=== PATIENT | female | born 1970 | race Caucasian/White ===

== ENCOUNTER 2024-09-07 11:30 | Outpatient (RCR) | payer MEDICARE, MEDICAID, SELFPAY ==
--- NOTE | 2024-07-11 13:45 | HP.PTEVAL_ITS ---
Patient's Visit Information Visit Information Visit Information: SOFIYA GARCIA is a 54 year old F referred to Physical Therapy by JOSE Guillaume with a diagnosis of Mixed Incontinence N39.46. Date of Evaluation: 07/11/24 Physical Therapist: Bharti Nick Visit Plan Frequency: 1x/Week Duration: 2 Months Plan: Continue 1 x week. Continue pelvic floor releases next visit. Added deep breathing today (she was having difficulty with belly breathing). Subjective Subjective: She noticed 3 years ago. She has Cerebral Palsy and 2 C sections. When she has to urinate, she has to get to the restroom quickly. On occasion, she will leak. On occasion, she can also have stress incontinence with coughing. When she has a good sneeze, she will leak. On occasion when she gets up from sitting she will leak. She wears pads on occasion. She can feel urgency come on quickly doing dishes and all of the sudden she feels urgency and has to get to the bathroom quickly. No pelvic pain. She had radiofrequency ablation on her low back and helped. 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 No frequency problems with urination. Her goal is to address the incontinence. Her goal is to maintain control and address her incontinence. Objective Objective: Incontinence Impact Questionnaire 14, Urogenital Distress Inventory 5 LAYCOCK -pelvic floor contraction barely palpable Moderate pelvic floor tightness bilaterally layers 2-3 especially - worse on right side , No evidence of prolapse Deep breathing: Chest breathing and minimal breathing into her belly Goals Goal 1:: Sofiya will be able to cough or sneeze without leaking. Goal Time Frame: 8-12 Weeks Goal 2:: Sofiya will be able to delay using the restroom by 5 minutes when urgen cy comes on without leaking. Goal Time Frame: 6-8 Weeks Goal 3:: Sofiya will be able to wash dishes for 30 minutes without feeling urgency or any incontinence. Goal Time Frame: 8-12 Weeks Goal 4:: Sofiya will be able to transfer sit to stand without leaking. Goal Time Frame: 2-4 Weeks Rehabilitation Potential Physical Therapy Diagnosis: Mixed incontinence Rehabilitation Potential: Good Anticipated Interventions Patient/Client Instruction: Educate patient on: Condition and Plan of Care For the Purpose of:: To improve muscle performance and motor function, To increase tolerance to activity/condition/position, To improve health and function and To improve self management Therapeutic Exercise to Include: Strength training, Neuromotor development and Relaxation training Comment: To improve pelvic floor strength and control For the Purpose of:: To improve muscle performance and motor function and To improve self management Manual Therapy Techniques to Include: Trigger point massage For the Purpose of:: To improve muscle performance and motor function, To decrease soft tissue restriction and To improve self management Text: Thank you for the opportunity to evaluate your patient. For Medicare and Medicare HMO plans, please review the plan of care and approve it. It will need to be FAXED BACK to us at [phone] for Medicare purposes. For Medicare only, by signing this I certify the plan of care. Please let me know if there are questions or concerns regarding this plan of care. Physician Signature: Date:
--- NOTE | 2024-12-07 12:07 | HP.PT.NRP ---
Patient Information Patient Information: SOFIYA GARCIA was seen in my office for initial evaluation on 07/11/24. The following Plan of Care was established for this patient: POC Established Initial Frequency: 1x/Week Initial Duration: 2 Months Anticipated Interventions Patient/Client Instruction: Educate patient on: Condition and Plan of Care For the Purpose of:: To improve muscle performance and motor function, To increase tolerance to activity/condition/position, To improve health and function and To improve self management Therapeutic Exercise to Include: Strength training, Neuromotor development and Relaxation training For the Purpose of:: To improve muscle performance and motor function and To improve self management Manual Therapy Techniques to Include: Trigger point massage For the Purpose of:: To improve muscle performance and motor function, To decrease soft tissue restriction and To improve self management Last Seen Last Seen: This patient was last seen in our office 09/07/24. Pertinent comments regarding their Physical therapy will appear below: Patient never returned for additional therapy after her last visit on 09/07/24. She had to cancel her last follow up appointment in October as she was ill. At this time, we are discharging her from PT. At this point I will be discontinuing this patient from physical therapy. I would be happy to see this patient again in the future if found appropriate by the physician. Thank you! Bharti Nick
== END 2024-09-07 19:00 | disposition home or self-care (01) ==
LOC: PT 11:30
PROVIDERS: PCP Family Medicine; Referring Provider Nurse Practitioner Women's Health; Visit Provider Nurse Practitioner Women's Health
DX: R10.2 Pelvic and perineal pain (principal)
CPT/HCPCS: 97110; 97112; 97140; 97162; 97530